=== PATIENT | female | born 1995 | race Caucasian/White ===

== ENCOUNTER 2017-09-17 01:04 | Emergency (ER) | payer BC, MEDICAID ==
[2017-09-17 01:33] LABS: Hematocrit 33.1 % (37.0-47.0); Hemoglobin 11.7 gm/dL (12.5-16.0); Mean Cell Volume 87.8 fl (78-100); Mean Corpuscular Hgb Conc 35.3 g/dl (32-36); Mean Platelet Volume 10.4 fl (6.0-9.5); Neutrophil # 9.2 K/mm3 (1.3-6.0); Neutrophil % 64.9 % (42-75.0); Platelet Count 209 K/mm3 (150-450); Red Blood Count 3.77 M/mm3 (4.2-5.4); Red Cell Distribution Width 13.7 % (11.5-14.0); White Blood Count 14.2 K/mm3 (4.0-10.5)
[2017-09-17 01:58] LABS: ALT 23 U/L (19-67); AST 12 U/L (0-48); Albumin * 2.9 gm/dl (3.4-5.0); Alkaline Phosphatase * 71 U/L (50-170); Anion Gap 13.6 mmol/L (6.8-13.8); BUN/Creatinine Ratio 7.4 (9.0-21.6); Bilirubin, Total 0.1 mg/dL (0.0-1.1); Blood Urea Nitrogen 4 mg/dL (3-23); Ca. Corrected For Albumin 9.3 mg/dL (8.4-10.2); Calcium * 8.7 mg/dL (7.9-10.9); Chloride 106 mmol/L (97-106); Glucose * 77 mg/dL (70-110); Potassium 3.6 mmol/L (3.4-4.6); Sodium 139 mmol/L (132-142); Total Protein 6.7 gm/dL (6.2-8.2); Troponin I Less than 0.017 ng/ml (0.00-0.10)
[2017-09-17 02:08] LABS: Urine Bilirubin Negative (NEGATIVE); Urine Blood Negative /ul (NEGATIVE); Urine Ketone Negative (NEGATIVE); Urine Nitrite Negative (NEGATIVE); Urine Protein Negative (NEGATIVE); Urine Urobilinogen Normal (NORMAL)
[2017-09-17 02:09] LABS: Urine Appearance Cloudy; Urine Color Yellow
[2017-09-17 02:10] LABS: Urine Amorphous Sediment Few - 1+ (NONE-FEW); Urine Bacteria 1+; Urine Mucus Few - 1+
[2017-09-17] MEDS ORDERED: MAG HYDROX/ALUMINUM HYD/SIMETH 30 ML UDC PO ONE (02:21)
[2017-09-17] MEDS ORDERED: LIDOCAINE HCL 20 ML UDC PO ONE (02:21)
[2017-09-17] MEDS ORDERED: SUCRALFATE 1 G/10 ML UDC PO ONE (02:21)
[2017-09-17] MEDS ORDERED: FAMOTIDINE 20 MG TABLET PO ONE (02:50)
[2017-09-17] MEDS ORDERED: FAMOTIDINE 20 MG TABLET ONE (02:54)
--- NOTE | 2017-09-17 02:54 | ERNOTE ---
Chest Pain/Cardiac HPI Chief Complaint: Chest Pain Time Seen by Provider: 09/17/17 01:10 Source: patient Exam Limitations: no limitations Immunizations: IMMUNIZATION HX Immunizations Up to Date Yes History of Influenza Vaccine No Hx Pneumococcal Vaccination More Information Required Allergies/Adverse Reactions: Allergies adhesive Allergy (Verified 09/17/17 01:15) Home Medications: HOME MEDICATIONS Vits96/Iron Fum/Folic [ S] 1 tab PO DAILY 09/17/17 [Last Taken Unknown] Ranitidine HCl [Zantac] 150 mg PO BID #60 tab 09/17/17 [Last Taken Unknown] Narrative: Pt states she awoke around 21:30 for no apparent reason. Soon after she began having chest pressure. She was unsure what was causing this and tried to "wait it out". She eventually came to the ED as her symptoms continued. Timing: constant Severity/Quality: moderate, pressure Location: substernal Chest Pain Radiation: no radiation Activities at Onset: rest Modifying Factors - Improves: Present: nothing Modifying Factors - Worsens: Present: nothing Associated Symptoms: Present: denies symptoms Prior Chest Pain/Cardiac Workup: Denies: prior chest pain Review of Systems - Review of Systems Constitutional: Absent: recent illness EYE: Absent: vision changes ENT: Absent: nose congestion, nasal drainage, sore throat Respiratory: Absent: shortness of breath Cardiology: Present: See HPI, edema - off and on, better today.. Absent: palpitations Gastrointestinal/Abdominal: Absent: nausea, vomiting, abdominal pain Genitourinary: Absent: frequency, pain, dysuria Musculoskeletal: Absent: back pain, muscle pain Skin: Absent: rash Neurological: Absent: anxiety, numbness, tingling Endocrine: Absent: excessive sweating, flushing Hematologic/Lymphatic: Present: no symptoms reported Psych: Present: no symptoms reported - Patient's Past Medical History Patient History - Medical: Migraines, UTI'S Patient History - Cardiac/Respiratory: No pertinent hx Patient History - Cancer: No Hx of Cancer Patient History - Surgical Procedures: Other Patient History - Other: None LMP (Calendar): 05/06/17 - Social History Living Situations: home Psych History: No pertinent hx Smoking Status: Current every day smoker Alcohol Use: none Drug Use: none - Immunizations Immunizations Up to Date: Yes Hx Pneumococcal Vaccination: More Information Required to Determine History of Influenza Vaccine: No Physical Exam - Physical Exam General Appearance: Present: wd/wn, alert, no apparent distress Head Exam: Present: normal inspection, no evidence of injury Eye Exam: Normal inspection: bilateral Ears, Nose, Throat: Present: normal ENT inspection Neck: Present: normal inspection, nontender, supple, full range of motion Respiratory: Present: no respiratory distress, normal breath sounds, no accessory muscle use, lungs clear Cardiovascular/Chest: Present: regular rate, rhythm, no murmur, normal peripheral pulses Gastrointestinal/Abdominal: Present: normal bowel sounds, nontender, soft, no organomegaly Back Exam: Present: normal inspection, normal range of motion Extremity Exam: Present: normal inspection, non-tender, normal range of motion, no edema Neurological Exam: Present: alert, oriented, normal mood/affect, no motor/ sensory deficits Skin Exam: Present: normal color, warm/dry Lymphatic Exam: Present: no adenopathy ED Progress - Results and Orders Patient's Lab Results:: I have reviewed the patient's lab results. Results and Orders: Laboratory Tests 09/17/17 09/17/17 09/17/17 01:21 01:42 01:42 WBC 14.2 H Hgb 11.7 L Hct 33.1 L Plt Count 209 D-Dimer 0.66 H Sodium 139 Potassium 3.6 Chloride 106 Carbon Dioxide 23.0 L BUN 4 Creatinine 0.54 Random Glucose 77 Calcium 8.7 Total Bilirubin 0.1 AST 12 ALT 23 Alkaline Phosphatase 71 Troponin I Less than 0.017 Total Protein 6.7 Albumin 2.9 L - Vital Signs Patient's Vital Signs:: I have reviewed the patient's vital signs. Vital Signs: Vital Signs 09/17/17 09/17/17 01:10 01:41 Temperature 36.3 C L Pulse Rate 87 90 Respiratory 18 18 Rate Blood Pressure 120/69 108/61 O2 Sat by Pulse 99 99 Oximetry - EKG EKG: NSR, nonspecific ST T wave changes EKG read: Interp. by me - Progress/Reassessment Chief Complaint: Chest Pain Progress:: Improved Progress Note-Subjective: 09/17/17 02:50 feels somewhat better after GI coctail. Departure Clinical Impression: Diffuse esophageal spasm Acid reflux Qualifiers: Esophagitis presence: esophagitis presence not specified Qualified Code(s): K21.9 - Gastro-esophageal reflux disease without esophagitis - Departure Disposition: Home self-care Condition: Good Instructions: Esophageal Spasm, Gastroesophageal Reflux Disease, Adult, Easy-to -Read Additional Instructions: Take zantac as prescribed for 2 weeks then you may taper off and take as needed Referrals: Jana Panda FNP [Primary Care Provider] - Prescriptions: Ranitidine HCl [Zantac] 150 mg PO BID #60 tab
[2017-09-17 03:04] VITALS: BP 103/55
== END 2017-09-17 03:01 | disposition home or self-care (01) ==
LOC: ER 01:04
DX: K22.4 Dyskinesia of esophagus (principal); K21.9 Gastro-esophageal reflux disease without esophagitis; Z87.440 Personal history of urinary (tract) infections; F17.200 Nicotine dependence, unspecified, uncomplicated